=== PATIENT | male | born 1990 | race Caucasian/White ===

== ENCOUNTER 2020-01-29 16:01 | Emergency (ER) | payer BC ==
--- NOTE | 2020-01-29 16:45 | EDM.PDOC ---
ED HPI GENERAL MEDICAL PROBLEM - General Stated Complaint: L SIDE CHEST PAIN WITH L ARM NUMBNESS Time Seen by Provider: 01/29/20 16:44 Source of Information: Reports: Patient History Limitations: Reports: No Limitations - History of Present Illness INITIAL COMMENTS - FREE TEXT/NARRATIVE: Ezio is a 29 year old otherwise healthy male who presents to the ED with c/o 1 week hx of left sided intermittent chest pain, aching in nature with numbness/ tingling down his left arm. Patient denies any cardiac hx. Patient reports a heart hx in his Dad. Patient denies any change in symptoms with Ibuprofen, movement. Patient denies any trauma. Patient does report left upper back pain on and off for the last couple of weeks. Patient reports that sometimes lying down makes it worse. Patient did drive here last , five hour drive, he denies any unilateral leg swelling or shortness of breath. Onset: Gradual Duration: Week(s): (1) Chest Pain Score (Numeric/FACES): 2 - Related Data Allergies Allergy/AdvReac Type Severity Reaction Status Date / Time No Known Allergies Allergy Verified 01/29/20 16:45 Home Meds: Home Meds NK [No Known Home Meds] 01/29/20 [History] ED ROS GENERAL - Review of Systems Review Of Systems: Comprehensive ROS is negative, except as noted in HPI. ED EXAM, GENERAL - Physical Exam Exam: See Below Exam Limited By: No Limitations General Appearance: Alert, WD/WN, No Apparent Distress Nose: Normal Inspection Throat/Mouth: Normal Oropharynx Head: Atraumatic Neck: Normal Inspection Respiratory/Chest: No Respiratory Distress, Lungs Clear, Normal Breath Sounds, Chest Non-Tender Cardiovascular: Normal Peripheral Pulses, Regular Rate, Rhythm, No Murmur Back Exam: Normal Inspection, Other (left trap muscle tenderness along scaphoid) Extremities: Normal Inspection Neurological: Alert, Oriented Psychiatric: Normal Affect Skin Exam: Warm, Dry Lymphatic: No Adenopathy EKG INTERPRETATION EKG Date: 01/29/20 Time: 16:39 Rhythm: NSR Rate (Beats/Min): 83 [place]: Normal P-Wave: Present QRS: RBBB (incomplete) ST-T: Normal QT: Normal Comparison: NA - No Prior EKG Course - Vital Signs Last Recorded V/S: Last Vital Signs Temp 36.6 C 01/29/20 16:48 Pulse 83 01/29/20 17:05 Resp 16 01/29/20 17:05 BP 170/107 H 01/29/20 17:05 Pulse Ox 98 01/29/20 17:05 Ezio is a 29 year old male, presents to the ED with c/o intermittent left arm numbness and chest pain/ache for the last week. Please refer to HPI and focused exam. Patient arrives her hypertensive, he is otherwise hemodynamically stable. EKG obtained and is negative for acute ischemic findings. Doubtful this is cardiac in etiology given duration of symptoms. Likely a musculoskeletal component with radiculopathy. Blood work obtained including CBC, CMP, Troponin and D Dimer all of which are unremarkable for any acute findings, I do not feel that a serial troponin is warranted given duration of symptoms. Patient reassured, instructed to take Ibuprofen scheduled for the next few days to see if this helps his symptoms. Patient can follow up with PCP when he returns home. Reasons to return to the ED discussed , patient agreeable to plan of care and discharged in stable condition. - Orders/Labs/Meds Orders: Active Orders 24 hr Category Date Time Status EKG Documentation Completion [RC] ASDIRECTED Care 01/29/20 16:16 Active EKG 12 Lead [EK] Stat Ther 01/29/20 16:16 Ordered Labs: Laboratory Tests 01/29/20 01/29/20 01/29/20 Range/Units 17:14 17:14 17:14 WBC 7.9 (4.5-11.0) K/uL RBC 5.13 (4.30-5.90) M/uL Hgb 15.1 H (12.0-15.0) g/dL Hct 45.5 (40.0-54.0) % MCV 89 (80-98) fL MCH 29 (27-31) pg MCHC 33 (32-36) % Plt Count 261 (150-400) K/uL Neut % (Auto) 61 (36-66) % Lymph % (Auto) 28 (24-44) % [place] % (Auto) 11 H (2-6) % Eos % (Auto) 1 L (2-4) % Baso % (Auto) 0 (0-1) % D-Dimer, Quantitative < 100 (0.0-400.0) ng/mL Sodium 139 L (140-148) mmol/L Potassium 3.7 (3.6-5.2) mmol/L Chloride 102 (100-108) mmol/L Carbon Dioxide 28 (21-32) mmol/L Anion Gap 12.7 (5.0-14.0) mmol/L BUN 14 (7-18) mg/dL Creatinine 1.1 (0.8-1.3) mg/dL Est Cr Clr Drug Dosing 116.24 mL/min Estimated GFR (MDRD) > 60 (>60) Glucose 93 (74-106) mg/dL Calcium 9.1 (8.5-10.1) mg/dL Total Bilirubin 0.4 (0.2-1.0) mg/dL AST 19 (15-37) U/L ALT 29 (12-78) U/L Alkaline Phosphatase 82 (46-116) U/L Troponin I < 0.017 (0.000-0.056) ng/mL Total Protein 7.9 (6.4-8.2) g/dL Albumin 4.0 (3.4-5.0) g/dL Globulin 3.9 H (2.3-3.5) g/dL Albumin/Globulin Ratio 1.0 L (1.2-2.2) Departure - Departure Time of Disposition: 18:00 Disposition: Home, Self-Care 01 Condition: Good Clinical Impression: Radiculopathy affecting upper extremity, Chest pain, non-cardiac Instructions: Cervical Radiculopathy Referrals: PCP,None [Primary Care Provider] - Additional Instructions: Ezio your blood work and EKG are normal. No signs of blood clots or heart involvement. I think your pain is coming from your back. I would recommend taking Ibuprofen 600 mg every 6 hours for pain/inflammation scheduled for the next week to see if this is helpful. You can follow up with your primary care provider in the next week for re-evaluation (When you return home). Sepsis Event Note (ED) - Focused Exam Vital Signs: Vital Signs Temp Pulse Resp BP Pulse Ox 01/29/20 17:05 83 16 170/107 H 98 01/29/20 16:48 36.6 C 83 16 163/106 H 98 01/29/20 16:45 36.6 C 83 16 163/106 H 98 - My Orders Last 24 Hours: My Active Orders 01/29/20 16:16 EKG Documentation Completion [RC] ASDIRECTED EKG 12 Lead [EK] Stat - Assessment/Plan Last 24 Hours: My Active Orders 01/29/20 16:16 EKG Documentation Completion [RC] ASDIRECTED EKG 12 Lead [EK] Stat
== END 2020-01-29 18:11 | disposition home or self-care (01) ==
LOC: JP.ED 16:01
DX: R07.89 Other chest pain (principal); M54.10 Radiculopathy, site unspecified
CPT/HCPCS: 36415; 80053; 84484; 85025; 85379; 93005; 99285-25